=== PATIENT | male | born 1930 | race Two or more races ===

== ENCOUNTER 2016-03-01 19:21 | Inpatient (IN) | payer MEDICARE, MEDICAID ==
[~2016-03-01] VITALS: Ht 157.5 cm; Wt 80.8 kg
[2016-03-01] MEDS ORDERED: ASPIRIN 81 MG TAB.CHEW ONE (19:54)
[2016-03-01] MEDS ORDERED: ASPIRIN 81 MG TAB.CHEW PO ONE (20:00)
[2016-03-01 20:13] LABS: CREATININE 2.9 mg/dL (0.6-1.3); POTASSIUM 5.1 mmol/L (3.5-5.1)
[2016-03-01 20:21] LABS: INR 1.05 (0.87-1.13); PROTHROMBIN TIME 11.4 SECS (9.5-12.7); TROPONIN I 0.231 ng/mL (0.00-0.056)
[2016-03-01 20:23] LABS: BASOPHILS % (AUTO) 0.4 % (0.0-2.0); DIFF TOTAL % 100 %; EOSINOPHILS # (AUTO) 0.1 /CMM (0.0-0.7); EOSINOPHILS % (AUTO) 0.9 % (0.0-6.0); HEMATOCRIT 39 % (39-51); HEMOGLOBIN 12.3 g/dL (13.5-17.5); LYMPHOCYTES # (AUTO) 1.1 /CMM (0.8-4.8); LYMPHOCYTES % (AUTO) 14.7 % (20.0-44.0); MEAN CORPUSCULAR HEMOGLOBIN 29 PG (26.0-33.0); MEAN CORPUSCULAR HGB CONC 32 g/dl (31.0-36.0); MEAN CORPUSCULAR VOLUME 92 fL (80-96); MONOCYTES # (AUTO) 0.7 /CMM (0.1-1.30); MONOCYTES % (AUTO) 9.1 % (2.0-12.0); NEUTROPHILS # (AUTO) 5.4 /CMM (1.8-8.9); NEUTROPHILS % (AUTO) 74.9 % (43.0-81.0); PLATELET COUNT (AUTO) 173 /CMM (150-450); RED BLOOD CELL COUNT(AUTO) 4.21 MIL/uL (4.5-6.0); WHITE BLOOD COUNT (AUTO) 7.3 K/uL (4.3-11.0)
[2016-03-01 20:25] LABS: ALBUMIN 2.8 g/dL (3.4-5.0); BILIRUBIN,DIRECT 0.1 mg/dL (0.0-0.2); BILIRUBIN,TOTAL 0.2 mg/dL (0.2-1.0); INDIRECT BILIRUBIN 0.1 mg/dL (0.0-1.1); TOTAL PROTEIN, SERUM 6.3 g/dL (6.4-8.2)
[2016-03-01] MEDS ORDERED: IV NS 0.9% 500 ML IV ONE (20:29)
[2016-03-01] MEDS ORDERED: predniSONE 20 MG TABLET ONE (20:29)
[2016-03-01] MEDS ORDERED: LEVOFLOXACIN 750 MG /D5W 150ML 150 ML IV ONE (20:29)
[2016-03-01] MEDS ORDERED: LEVOFLOXACIN 750 MG /D5W 150ML PIGGYBACK IV ONE (20:30)
[2016-03-01] MEDS ORDERED: predniSONE 20 MG TABLET PO ONE (20:30)
[2016-03-01] MEDS ORDERED: IV SET PRIMARY PUMP SET 1 EA INFUS.SET MC ONE (20:30)
[2016-03-01] MEDS ORDERED: IV NS 0.9% 500 ML BAG IV ONE (20:30)
[2016-03-01] MEDS ORDERED: SECONDARY IV SET 1 EA INFUS.SET MC ONE (20:30)
[2016-03-01] MEDS ORDERED: FUROSEMIDE 40 MG/4 ML VIAL ONE (21:15)
[2016-03-01 21:30] VITALS: BP 124/55
[2016-03-01] MEDS ORDERED: MAGNESIUM HYDROXIDE 30 ML UDC PO PRN (21:30)
[2016-03-01] MEDS ORDERED: ZOLPIDEM TARTRATE 5 MG TABLET PO PRN (21:30)
[2016-03-01] MEDS ORDERED: MAG HYDROX/AL HYDROX/SIMETH 30 ML UDC PO PRN (21:30)
[2016-03-01] MEDS ORDERED: ALBUTEROL FS 2.5 MG/3 ML VIAL.NEB CONTNEB PRN (21:30)
[2016-03-01] MEDS ORDERED: HYDROCODONE/APAP 5/325MG 1 EACH TABLET PO PRN (21:30)
[2016-03-01] MEDS ORDERED: Z GUARD REMEDY 2 OZ OINT TP PRN (21:30)
[2016-03-01] MEDS ORDERED: ONDANSETRON HCL/PF 4 MG/2 ML VIAL IVP PRN (21:30)
[2016-03-01] MEDS ORDERED: FUROSEMIDE 40 MG/4 ML VIAL IV ONE (21:30)
[2016-03-01] MEDS ORDERED: ACETAMINOPHEN 325 MG TABLET PO PRN (21:30)
[2016-03-01 22:00] VITALS: BP 124/55
[2016-03-02 04:00] VITALS: BP 98/42
[2016-03-02] MEDS ORDERED: methylPREDNISolone SOD SUCC 125 MG/2ML VIAL ONE (04:44)
[2016-03-02] MEDS: methylPREDNISolone SOD SUCC 40 MG/ML VIAL IV SCH ×3 (05:20→21:19)
[2016-03-02 06:35] LABS: DIFF TOTAL % 100 %; HEMATOCRIT 38 % (39-51); HEMOGLOBIN 12.3 g/dL (13.5-17.5); LYMPHOCYTES # (AUTO) 0.3 /CMM (0.8-4.8); LYMPHOCYTES % (AUTO) 6.5 % (20.0-44.0); MEAN CORPUSCULAR HEMOGLOBIN 30 PG (26.0-33.0); MEAN CORPUSCULAR HGB CONC 32 g/dl (31.0-36.0); MEAN CORPUSCULAR VOLUME 92 fL (80-96); MONOCYTES % (AUTO) 0.8 % (2.0-12.0); NEUTROPHILS # (AUTO) 3.7 /CMM (1.8-8.9); NEUTROPHILS % (AUTO) 92.7 % (43.0-81.0); PLATELET COUNT (AUTO) 147 /CMM (150-450); RED BLOOD CELL COUNT(AUTO) 4.15 MIL/uL (4.5-6.0)
[2016-03-02 06:50] VITALS: BP 104/46
[2016-03-02 06:57] LABS: CALCIUM, SERUM 7.7 mg/dL (8.5-10.1); CREATININE 2.6 mg/dL (0.6-1.3); PHOSPHORUS 5.7 mg/dL (2.5-4.9); POTASSIUM 5.8 mmol/L (3.5-5.1)
[2016-03-02 08:00] VITALS: BP 144/54
[2016-03-02] MEDS: FUROSEMIDE 40 MG/4 ML VIAL IV SCH (08:18)
[2016-03-02] MEDS: PANTOPRAZOLE 40 MG TABLET.DR PO SCH (08:22)
[2016-03-02] MEDS: ASPIRIN 325 MG TABLET PO SCH (08:22)
[2016-03-02] MEDS: hydrALAZINE HCL 50 MG TABLET PO SCH ×3 (09:30→16:34)
[2016-03-02 09:47] LABS: THYROID STIMULATING HORMONE 0.239 uIU/mL (0.358-3.74)
[2016-03-02] MEDS ORDERED: SODIUM POLYSTYRENE SULFONATE 15 G/60 ML BOTTLE PO ONE (10:30)
[2016-03-02] MEDS ORDERED: TIOT18CA3 INH (10:48)
[2016-03-02] MEDS ORDERED: TAMS0.4C34 PO (10:48)
[2016-03-02] MEDS ORDERED: ESOM40CA52 PO (10:48)
[2016-03-02] MEDS ORDERED: CLOP75TA2 PO (10:48)
[2016-03-02] MEDS ORDERED: PRAM0.129 PO (10:48)
[2016-03-02] MEDS ORDERED: ATOR40TA PO (10:48)
[2016-03-02] MEDS ORDERED: ERGO50003 PO (10:48)
[2016-03-02] MEDS ORDERED: RIVA1PAT TP (10:48)
[2016-03-02] MEDS ORDERED: VALS320T13 PO (10:48)
[2016-03-02] MEDS ORDERED: DUTA0.5C15 PO (10:48)
[2016-03-02] MEDS ORDERED: ALLO100T PO (10:48)
[2016-03-02] MEDS ORDERED: BISO10TA PO (10:48)
[2016-03-02] MEDS ORDERED: TRAM50TA2 PO (10:48)
[2016-03-02] MEDS ORDERED: ASPI-991 PO (10:48)
[2016-03-02] MEDS ORDERED: TRAMADOL HCL 50 MG TABLET PO PRN (11:30)
[2016-03-02 12:00] VITALS: BP 110/49
[2016-03-02] MEDS: PRAMIPEXOLE DI-HCL 0.25 MG TABLET PO SCH (12:10)
[2016-03-02] MEDS: IPRATROPIUM NEB FS 0.5 MG/2.5 ML AMPUL.NEB NEB SCH ×2 (13:43→19:30)
[2016-03-02 15:51] LABS: ADD UA MICROSCOPIC NO; KETONES,URINE NEGATIVE (NEGATIVE); LEUKOCYTE ESTERASE ,URINE NEGATIVE (NEGATIVE)
[2016-03-02 15:56] LABS: CREATININE, URINE 46.3 MG/DL (30.0-125.0); URINE TOTAL PROTEIN 9.8 mg/dL (0-11.9)
[2016-03-02 16:00] VITALS: BP 103/52
[2016-03-02 20:00] VITALS: BP 107/68
[2016-03-03] VITALS: BP 116/72
[2016-03-03] MEDS: IPRATROPIUM NEB FS 0.5 MG/2.5 ML AMPUL.NEB NEB SCH ×3 (01:30→13:23)
[2016-03-03 04:00] VITALS: BP_SYST 109; BP_SYST 127; BP_DIAS 64; BP_DIAS 66
[2016-03-03] MEDS: methylPREDNISolone SOD SUCC 40 MG/ML VIAL IV SCH ×2 (05:36→12:16)
[2016-03-03] MEDS: PANTOPRAZOLE 40 MG TABLET.DR PO SCH (06:38)
[2016-03-03 07:07] LABS: DIFF TOTAL % 100 %; HEMATOCRIT 37 % (39-51); HEMOGLOBIN 11.7 g/dL (13.5-17.5); LYMPHOCYTES # (AUTO) 0.2 /CMM (0.8-4.8); LYMPHOCYTES % (AUTO) 4.1 % (20.0-44.0); MEAN CORPUSCULAR HEMOGLOBIN 29 PG (26.0-33.0); MEAN CORPUSCULAR HGB CONC 32 g/dl (31.0-36.0); MEAN CORPUSCULAR VOLUME 92 fL (80-96); MONOCYTES # (AUTO) 0.1 /CMM (0.1-1.30); MONOCYTES % (AUTO) 1.6 % (2.0-12.0); NEUTROPHILS # (AUTO) 5.1 /CMM (1.8-8.9); NEUTROPHILS % (AUTO) 94.3 % (43.0-81.0); PLATELET COUNT (AUTO) 151 /CMM (150-450); RED BLOOD CELL COUNT(AUTO) 3.98 MIL/uL (4.5-6.0); WHITE BLOOD COUNT (AUTO) 5.4 K/uL (4.3-11.0)
[2016-03-03 07:24] LABS: TROPONIN I 0.217 ng/mL (0.00-0.056)
[2016-03-03 07:31] LABS: ALBUMIN 2.6 g/dL (3.4-5.0); BILIRUBIN,TOTAL 0.2 mg/dL (0.2-1.0); CALCIUM, SERUM 7.8 mg/dL (8.5-10.1); CREATININE 2.5 mg/dL (0.6-1.3); PHOSPHORUS 4.3 mg/dL (2.5-4.9); POTASSIUM 4.7 mmol/L (3.5-5.1)
[2016-03-03 08:00] VITALS: BP 118/52
[2016-03-03] MEDS ORDERED: TAMSULOSIN 0.4 MG CAP.SR.24H PO SCH (09:00)
[2016-03-03] MEDS ORDERED: CLOPIDOGREL BISULFATE 75 MG TABLET PO SCH (09:00)
[2016-03-03] MEDS ORDERED: ALLOPURINOL 100 MG TABLET PO SCH (09:00)
[2016-03-03] MEDS ORDERED: TIOTROPIUM BROMIDE 6 CAP/BOX CAP.W.DEV IH SCH (09:00)
[2016-03-03] MEDS ORDERED: DUTASTERIDE (0.5 MG) 0.5 MG CAPSULE PO SCH (09:00)
[2016-03-03] MEDS ORDERED: ATORVASTATIN 40 MG TABLET PO SCH (09:00)
[2016-03-03] MEDS ORDERED: BISOPROLOL FUMARATE 5 MG TABLET PO SCH (09:00)
[2016-03-03] MEDS ORDERED: RIVASTIGMINE TARTRATE 4.6 MG PATCH.TD24 TD SCH (09:00)
[2016-03-03] MEDS: FUROSEMIDE 40 MG/4 ML VIAL IV SCH (09:11)
[2016-03-03] MEDS: ASPIRIN 325 MG TABLET PO SCH (09:11)
[2016-03-03] MEDS: hydrALAZINE HCL 50 MG TABLET PO SCH ×3 (09:11→16:39)
[2016-03-03] MEDS: PRAMIPEXOLE DI-HCL 0.25 MG TABLET PO SCH (09:12)
[2016-03-03 09:23] LABS: CREATININE, URINE 142.6 MG/DL (30.0-125.0); URINE TOTAL PROTEIN 37.8 mg/dL (0-11.9)
[2016-03-03 10:59] LABS: ADD UA MICROSCOPIC NO; KETONES,URINE NEGATIVE (NEGATIVE); LEUKOCYTE ESTERASE ,URINE NEGATIVE (NEGATIVE)
[2016-03-03] MEDS ORDERED: FUROSEMIDE 40 MG/4 ML VIAL IV ONE (14:30)
[2016-03-03 16:00] VITALS: BP 95/50
[2016-03-03] MEDS ORDERED: LEVOFLOXACIN (500MG) 500 MG TABLET PO SCH (16:30)
[2016-03-03 16:39] VITALS: BP 95/50
[2016-03-03] MEDS ORDERED: LEVOFLOXACIN (500MG) 500 MG TABLET PO ONE (17:00)
[2016-03-04 08:16] LABS: *SPE ALBUMIN 2.9 g/dL (2.9-4.4)
[2016-03-04] MEDS ORDERED: ERGOCALCIFEROL (VITAMIN D 2) 50,000 UNIT CAPSULE PO SCH (09:00)
[2016-03-04] MEDS ORDERED: FUROSEMIDE 40 MG TABLET PO SCH (09:00)
[2016-03-04 12:14] LABS: PTH, INTACT 226 pg/mL (15-65)
[2016-03-05] MEDS ORDERED: LEVOFLOXACIN (250MG) 250 MG TABLET PO SCH (17:00)
== END 2016-03-03 17:30 | disposition left against medical advice (07) | DRG 280 ==
LOC: ER 19:22 → TELE 21:14 → MED 03-03 08:53
PROVIDERS: ADMIT Internal Medicine; ATTEND Internal Medicine
DX: I13.0 Hypertensive heart and chronic kidney disease with heart failure and stage 1 through stage 4 chronic kidney disease, or unspecified chronic kidney disease (principal); I21.4 Non-ST elevation (NSTEMI) myocardial infarction; E43 Unspecified severe protein-calorie malnutrition; I50.43 Acute on chronic combined systolic (congestive) and diastolic (congestive) heart failure; N17.9 Acute kidney failure, unspecified; J44.0 Chronic obstructive pulmonary disease with (acute) lower respiratory infection; J90 Pleural effusion, not elsewhere classified; J98.11 Atelectasis; E78.5 Hyperlipidemia, unspecified; E11.22 Type 2 diabetes mellitus with diabetic chronic kidney disease; N18.9 Chronic kidney disease, unspecified; I25.10 Atherosclerotic heart disease of native coronary artery without angina pectoris; E83.39 Other disorders of phosphorus metabolism; E87.5 Hyperkalemia; J20.9 Acute bronchitis, unspecified; K21.9 Gastro-esophageal reflux disease without esophagitis; N40.0 Benign prostatic hyperplasia without lower urinary tract symptoms; Z72.0 Tobacco use; M62.50 Muscle wasting and atrophy, not elsewhere classified, unspecified site; Z68.32 Body mass index [BMI] 32.0-32.9, adult; I35.0 Nonrheumatic aortic (valve) stenosis; I27.2 Other secondary pulmonary hypertension
CPT/HCPCS: 36415; 71010-TC; 80048-TC; 80053-TC; 80061-TC; 80076-TC; 81000-TC; 82306; 82550-TC; 82570-TC; 82728-TC; 83540-TC; 83605-TC; 83735-TC; 83880; 83970; 84100-TC; 84155; 84155-TC; 84165; 84300-TC; 84439-TC; 84443-TC; 84484-TC; 85025-TC; 85730-TC; 87040-TC; 87081-TC; 93307-TC; 94799-TC; A4606; J1940; J1956; J2920; J2930; J7040; Z7610

== ENCOUNTER 2016-03-17 00:50 | Inpatient (IN) | payer MEDICARE, MEDICAID ==
[~2016-03-17] VITALS: Ht 160 cm; Wt 79.5 kg
[~2016-03-17 00:50] MED LIST: ALLO100T PO; ASPI-991 PO; ATOR40TA PO; BISO10TA PO; CLOP75TA2 PO; DUTA0.5C15 PO; ERGO50003 PO; ESOM40CA52 PO; PRAM0.129 PO; RIVA1PAT TP; TAMS0.4C34 PO; TIOT18CA3 INH; TRAM50TA2 PO; VALS320T13 PO
[2016-03-17] MEDS ORDERED: hydrALAZINE HCL 25 MG TABLET PO PRN (02:00)
[2016-03-17] MEDS ORDERED: MAG HYDROX/AL HYDROX/SIMETH 30 ML UDC PO PRN (02:00)
[2016-03-17] MEDS ORDERED: MORPHINE SULFATE INJ 2 MG/ML DISP.SYRIN IV PRN (02:00)
[2016-03-17] MEDS ORDERED: ACETAMINOPHEN 325 MG TABLET PO PRN (02:00)
[2016-03-17] MEDS ORDERED: HYDROCODONE/APAP 5/325MG 1 EACH TABLET PO PRN (02:00)
[2016-03-17] MEDS ORDERED: ZOLPIDEM TARTRATE 5 MG TABLET PO PRN (02:00)
[2016-03-17] MEDS ORDERED: ONDANSETRON HCL/PF 4 MG/2 ML VIAL IVP PRN (02:00)
[2016-03-17] MEDS ORDERED: Z GUARD REMEDY 2 OZ OINT TP PRN (02:00)
[2016-03-17] MEDS ORDERED: MAGNESIUM HYDROXIDE 30 ML UDC PO PRN (02:00)
[2016-03-17 02:10] VITALS: BP 122/59
[2016-03-17] MEDS ORDERED: ALBUTEROL FS 2.5 MG/3 ML VIAL.NEB NEB PRN (02:30)
[2016-03-17 02:51] LABS: CALCIUM, SERUM 8.1 mg/dL (8.5-10.1); CREATININE 2.7 mg/dL (0.6-1.3); POTASSIUM 4.9 mmol/L (3.5-5.1)
[2016-03-17 02:56] LABS: DIFF TOTAL % 100 %; HEMATOCRIT 38 % (39-51); HEMOGLOBIN 12.4 g/dL (13.5-17.5); LYMPHOCYTES # (AUTO) 0.2 /CMM (0.8-4.8); LYMPHOCYTES % (AUTO) 2.9 % (20.0-44.0); MEAN CORPUSCULAR HEMOGLOBIN 30 PG (26.0-33.0); MEAN CORPUSCULAR HGB CONC 32 g/dl (31.0-36.0); MEAN CORPUSCULAR VOLUME 92 fL (80-96); MONOCYTES % (AUTO) 0.5 % (2.0-12.0); NEUTROPHILS # (AUTO) 6.6 /CMM (1.8-8.9); NEUTROPHILS % (AUTO) 96.6 % (43.0-81.0); PLATELET COUNT (AUTO) 153 /CMM (150-450); RED BLOOD CELL COUNT(AUTO) 4.19 MIL/uL (4.5-6.0); WHITE BLOOD COUNT (AUTO) 6.8 K/uL (4.3-11.0)
[2016-03-17 04:00] VITALS: BP 103/71
[2016-03-17 04:43] LABS: INR 1.16 (0.87-1.13); PROTHROMBIN TIME 12.6 SECS (9.5-12.7)
[2016-03-17 08:00] VITALS: BP 112/76
[2016-03-17] MEDS: ASPIRIN 81 MG TAB.CHEW PO SCH (09:57)
[2016-03-17] MEDS: PANTOPRAZOLE 40 MG TABLET.DR PO SCH (09:58)
[2016-03-17 12:00] VITALS: BP 126/64
[2016-03-17] MEDS: FUROSEMIDE 100 MG/10 ML VIAL IV SCH ×3 (13:22→20:30)
[2016-03-17 16:00] VITALS: BP 150/66
[2016-03-17] MEDS ORDERED: ASPIRIN EC 81 MG TABLET.DR PO SCH (16:00)
[2016-03-17] MEDS ORDERED: TIOTROPIUM BROMIDE 6 CAP/BOX CAP.W.DEV IH SCH (16:00)
[2016-03-17] MEDS ORDERED: TRAMADOL HCL 50 MG TABLET PO PRN (16:00)
[2016-03-17] MEDS ORDERED: Medication Not On Formulary EA (Esomeprazole Magnesium 40 MG) PO SCH (16:00)
[2016-03-17] MEDS: BISOPROLOL FUMARATE 5 MG TABLET PO SCH (17:00)
[2016-03-17] MEDS: TAMSULOSIN 0.4 MG CAP.SR.24H PO SCH (17:18)
[2016-03-17] MEDS: PRAMIPEXOLE DI-HCL 0.25 MG TABLET PO SCH (17:19)
[2016-03-17 20:00] VITALS: BP 111/56
[2016-03-18] VITALS (8 sets, daily range): BP systolic 96–130; BP diastolic 49–68
[2016-03-18] MEDS ORDERED: PANTOPRAZOLE 40 MG TABLET.DR PO SCH (07:30)
[2016-03-18] MEDS: IPRATROPIUM NEB FS 0.5 MG/2.5 ML AMPUL.NEB NEB SCH ×3 (07:35→20:00)
[2016-03-18] MEDS: ALBUTEROL HALF STRENGTH 1.25 MG/3 ML VIAL.NEB NEB SCH ×3 (07:35→20:00)
[2016-03-18] MEDS: RIVASTIGMINE TARTRATE 4.6 MG PATCH.TD24 TD SCH (08:14)
[2016-03-18] MEDS: ALLOPURINOL 100 MG TABLET PO SCH (08:15)
[2016-03-18] MEDS: BISOPROLOL FUMARATE 5 MG TABLET PO SCH (08:15)
[2016-03-18] MEDS: DUTASTERIDE (0.5 MG) 0.5 MG CAPSULE PO SCH (08:15)
[2016-03-18] MEDS: CLOPIDOGREL BISULFATE 75 MG TABLET PO SCH (08:16)
[2016-03-18] MEDS: PANTOPRAZOLE 40 MG TABLET.DR PO SCH (08:16)
[2016-03-18] MEDS: TAMSULOSIN 0.4 MG CAP.SR.24H PO SCH (08:16)
[2016-03-18] MEDS: PRAMIPEXOLE DI-HCL 0.25 MG TABLET PO SCH (08:16)
[2016-03-18] MEDS: VALSARTAN 80 MG TABLET PO SCH (08:16)
[2016-03-18] MEDS: ASPIRIN 81 MG TAB.CHEW PO SCH (08:16)
[2016-03-18] MEDS: ATORVASTATIN 40 MG TABLET PO SCH (08:16)
[2016-03-18] MEDS: FUROSEMIDE 80 MG TABLET PO SCH (08:17)
[2016-03-18 08:19] LABS: BASOPHILS % (AUTO) 0.1 % (0.0-2.0); DIFF TOTAL % 100 %; HEMATOCRIT 38 % (39-51); HEMOGLOBIN 12.1 g/dL (13.5-17.5); LYMPHOCYTES # (AUTO) 0.7 /CMM (0.8-4.8); LYMPHOCYTES % (AUTO) 8.3 % (20.0-44.0); MEAN CORPUSCULAR HEMOGLOBIN 29 PG (26.0-33.0); MEAN CORPUSCULAR HGB CONC 32 g/dl (31.0-36.0); MEAN CORPUSCULAR VOLUME 93 fL (80-96); MONOCYTES # (AUTO) 0.5 /CMM (0.1-1.30); MONOCYTES % (AUTO) 5.4 % (2.0-12.0); NEUTROPHILS # (AUTO) 7.4 /CMM (1.8-8.9); NEUTROPHILS % (AUTO) 86.2 % (43.0-81.0); PLATELET COUNT (AUTO) 164 /CMM (150-450); RED BLOOD CELL COUNT(AUTO) 4.14 MIL/uL (4.5-6.0); WHITE BLOOD COUNT (AUTO) 8.6 K/uL (4.3-11.0)
[2016-03-18 08:34] LABS: CALCIUM, SERUM 8.3 mg/dL (8.5-10.1); CREATININE 2.5 mg/dL (0.6-1.3); PHOSPHORUS 4.3 mg/dL (2.5-4.9); POTASSIUM 4.9 mmol/L (3.5-5.1)
[2016-03-18] MEDS ORDERED: ERGOCALCIFEROL (VITAMIN D 2) 50,000 UNIT CAPSULE PO SCH (09:00)
[2016-03-18 13:07] LABS: GLUCOSE,BODY FLUID 139 mg/dL; LDH, BODY FLUID 74 U/L
[2016-03-18 13:19] LABS: PROTEIN, BODY FLUID < 2.0 G/DL
[2016-03-18 14:32] LABS: APPEARANCE,UNSPUN,BODY FLUID SLIGHTLY HAZY (CLEAR)
[2016-03-18 14:33] LABS: COLOR,BODY FLUID YELLOW (LT YELLOW); RBC, BODY FLUID 29 /cu. mm. (0-2000); WBC, BODY FLUID 14 /cu. mm. (0-200)
[2016-03-18 14:34] LABS: MACROPHAGES, BODY FLUID 2; POLYNUCLEAR, BODY FLUID 12 % (0-25)
[2016-03-19] MEDS: IPRATROPIUM NEB FS 0.5 MG/2.5 ML AMPUL.NEB NEB SCH ×4 (01:25→20:13)
[2016-03-19] MEDS: ALBUTEROL HALF STRENGTH 1.25 MG/3 ML VIAL.NEB NEB SCH ×4 (01:25→20:13)
[2016-03-19 07:25] LABS: BASOPHILS % (AUTO) 0.2 % (0.0-2.0); DIFF TOTAL % 100 %; EOSINOPHILS % (AUTO) 0.7 % (0.0-6.0); HEMATOCRIT 37 % (39-51); HEMOGLOBIN 11.9 g/dL (13.5-17.5); LYMPHOCYTES # (AUTO) 0.7 /CMM (0.8-4.8); LYMPHOCYTES % (AUTO) 12.4 % (20.0-44.0); MEAN CORPUSCULAR HEMOGLOBIN 30 PG (26.0-33.0); MEAN CORPUSCULAR HGB CONC 32 g/dl (31.0-36.0); MEAN CORPUSCULAR VOLUME 92 fL (80-96); MONOCYTES # (AUTO) 0.3 /CMM (0.1-1.30); MONOCYTES % (AUTO) 5.8 % (2.0-12.0); NEUTROPHILS # (AUTO) 4.7 /CMM (1.8-8.9); NEUTROPHILS % (AUTO) 80.9 % (43.0-81.0); PLATELET COUNT (AUTO) 145 /CMM (150-450); RED BLOOD CELL COUNT(AUTO) 4.02 MIL/uL (4.5-6.0); WHITE BLOOD COUNT (AUTO) 5.9 K/uL (4.3-11.0)
[2016-03-19 07:40] LABS: ALBUMIN 2.5 g/dL (3.4-5.0); BILIRUBIN,TOTAL 0.4 mg/dL (0.2-1.0); CALCIUM, SERUM 7.9 mg/dL (8.5-10.1); CREATININE 2.3 mg/dL (0.6-1.3); PHOSPHORUS 3.8 mg/dL (2.5-4.9); POTASSIUM 4.6 mmol/L (3.5-5.1); TOTAL PROTEIN, SERUM 5.5 g/dL (6.4-8.2)
[2016-03-19 07:47] LABS: TROPONIN I 0.322 ng/mL (0.00-0.056)
[2016-03-19 08:00] VITALS: BP 121/57
[2016-03-19] MEDS: RIVASTIGMINE TARTRATE 4.6 MG PATCH.TD24 TD SCH (08:33)
[2016-03-19] MEDS: BISOPROLOL FUMARATE 5 MG TABLET PO SCH (08:34)
[2016-03-19] MEDS: CLOPIDOGREL BISULFATE 75 MG TABLET PO SCH (08:35)
[2016-03-19] MEDS: VALSARTAN 80 MG TABLET PO SCH (08:35)
[2016-03-19] MEDS: FUROSEMIDE 80 MG TABLET PO SCH ×2 (08:36→16:20)
[2016-03-19] MEDS: PRAMIPEXOLE DI-HCL 0.25 MG TABLET PO SCH (08:36)
[2016-03-19] MEDS: DUTASTERIDE (0.5 MG) 0.5 MG CAPSULE PO SCH (08:36)
[2016-03-19] MEDS: TAMSULOSIN 0.4 MG CAP.SR.24H PO SCH (08:36)
[2016-03-19] MEDS: ATORVASTATIN 40 MG TABLET PO SCH (08:36)
[2016-03-19] MEDS: ASPIRIN 81 MG TAB.CHEW PO SCH (08:36)
[2016-03-19] MEDS: PANTOPRAZOLE 40 MG TABLET.DR PO SCH (08:36)
[2016-03-19] MEDS: ALLOPURINOL 100 MG TABLET PO SCH (08:36)
[2016-03-19] MEDS ORDERED: FUROSEMIDE 40 MG/4 ML VIAL IV SCH (12:30)
[2016-03-19] MEDS ORDERED: CEFTRIAXONE 1 G in IV D5W 50 ML IV SCH (13:00)
[2016-03-19] MEDS ORDERED: AZITHROMYCIN 500 MG in IV D5W 250 ML IV SCH (13:00)
[2016-03-19] MEDS ORDERED: IV SET PRIMARY PUMP SET 1 EA INFUS.SET MC ONE (13:31)
[2016-03-19] MEDS ORDERED: SECONDARY IV SET 1 EA INFUS.SET MC ONE (13:31)
[2016-03-19] MEDS ORDERED: IV NS 0.9% 250 ML IV ONE (13:31)
[2016-03-19 16:00] VITALS: BP 123/54
[2016-03-19] MEDS ORDERED: AMOX/CLAVULANATE 875 MG TABLET PO SCH (17:00)
[2016-03-19 20:00] VITALS: BP 127/67
[2016-03-19] MEDS: AMOX/CLAVULANATE 250 MG TABLET PO SCH (21:08)
[2016-03-20] MEDS: IPRATROPIUM NEB FS 0.5 MG/2.5 ML AMPUL.NEB NEB SCH ×2 (02:18→07:37)
[2016-03-20] MEDS: ALBUTEROL HALF STRENGTH 1.25 MG/3 ML VIAL.NEB NEB SCH ×2 (02:18→07:37)
[2016-03-20 08:00] VITALS: BP 123/61
[2016-03-20] MEDS: ATORVASTATIN 40 MG TABLET PO SCH (08:42)
[2016-03-20] MEDS: ASPIRIN 81 MG TAB.CHEW PO SCH (08:42)
[2016-03-20] MEDS: FUROSEMIDE 80 MG TABLET PO SCH (08:42)
[2016-03-20] MEDS: TAMSULOSIN 0.4 MG CAP.SR.24H PO SCH (08:43)
[2016-03-20] MEDS: DUTASTERIDE (0.5 MG) 0.5 MG CAPSULE PO SCH (08:43)
[2016-03-20] MEDS: PRAMIPEXOLE DI-HCL 0.25 MG TABLET PO SCH (08:43)
[2016-03-20] MEDS: PANTOPRAZOLE 40 MG TABLET.DR PO SCH (08:43)
[2016-03-20] MEDS: BISOPROLOL FUMARATE 5 MG TABLET PO SCH (08:44)
[2016-03-20] MEDS: RIVASTIGMINE TARTRATE 4.6 MG PATCH.TD24 TD SCH (08:44)
[2016-03-20] MEDS: AMOX/CLAVULANATE 250 MG TABLET PO SCH (08:44)
[2016-03-20 08:53] VITALS: BP 123/61
[2016-03-20] MEDS: VALSARTAN 80 MG TABLET PO SCH (08:53)
[2016-03-20] MEDS: CLOPIDOGREL BISULFATE 75 MG TABLET PO SCH (08:54)
[2016-03-20 10:02] LABS: BASOPHILS % (AUTO) 0.3 % (0.0-2.0); DIFF TOTAL % 100 %; EOSINOPHILS # (AUTO) 0.1 /CMM (0.0-0.7); HEMATOCRIT 40 % (39-51); HEMOGLOBIN 12.7 g/dL (13.5-17.5); LYMPHOCYTES # (AUTO) 0.5 /CMM (0.8-4.8); LYMPHOCYTES % (AUTO) 8.5 % (20.0-44.0); MEAN CORPUSCULAR HEMOGLOBIN 29 PG (26.0-33.0); MEAN CORPUSCULAR HGB CONC 32 g/dl (31.0-36.0); MEAN CORPUSCULAR VOLUME 90 fL (80-96); MONOCYTES # (AUTO) 0.3 /CMM (0.1-1.30); MONOCYTES % (AUTO) 5.8 % (2.0-12.0); NEUTROPHILS # (AUTO) 4.8 /CMM (1.8-8.9); NEUTROPHILS % (AUTO) 83.4 % (43.0-81.0); PLATELET COUNT (AUTO) 166 /CMM (150-450); RED BLOOD CELL COUNT(AUTO) 4.39 MIL/uL (4.5-6.0); WHITE BLOOD COUNT (AUTO) 5.7 K/uL (4.3-11.0)
[2016-03-20 10:16] LABS: CALCIUM, SERUM 8.3 mg/dL (8.5-10.1); CREATININE 2.3 mg/dL (0.6-1.3); POTASSIUM 3.8 mmol/L (3.5-5.1)
[2016-03-20] MEDS ORDERED: FUROSEMIDE 80 MG TABLET PO SCH (17:00)
== END 2016-03-20 12:05 | disposition home or self-care (01) | DRG 280 ==
LOC: TELE 01:47 → MED 03-18 10:05
PROVIDERS: ADMIT Internal Medicine; ATTEND Internal Medicine
PROC: 0W993ZZ Drainage of Right Pleural Cavity, Percutaneous Approach (ICD-10-PCS; principal; 2016-03-18)
DX: I21.4 Non-ST elevation (NSTEMI) myocardial infarction (principal); N17.0 Acute kidney failure with tubular necrosis; J96.21 Acute and chronic respiratory failure with hypoxia; I50.33 Acute on chronic diastolic (congestive) heart failure; J15.9 Unspecified bacterial pneumonia; I13.0 Hypertensive heart and chronic kidney disease with heart failure and stage 1 through stage 4 chronic kidney disease, or unspecified chronic kidney disease; J44.1 Chronic obstructive pulmonary disease with (acute) exacerbation; J98.11 Atelectasis; J90 Pleural effusion, not elsewhere classified; E87.0 Hyperosmolality and hypernatremia; N18.9 Chronic kidney disease, unspecified; I25.10 Atherosclerotic heart disease of native coronary artery without angina pectoris; F03.90 Unspecified dementia, unspecified severity, without behavioral disturbance, psychotic disturbance, mood disturbance, and anxiety; E78.5 Hyperlipidemia, unspecified; D63.8 Anemia in other chronic diseases classified elsewhere; G47.33 Obstructive sleep apnea (adult) (pediatric); F09 Unspecified mental disorder due to known physiological condition
CPT/HCPCS: 36415; 71010-TC; 76942-TC; 80048-TC; 80053-TC; 83735-TC; 84100-TC; 84484-TC; 85025-TC; 85610-TC; 87070-TC; 87075-TC; 87081-TC; 87102-TC; 89051-TC; 94799-TC; 97001-TC; 97003-TC; 97110-TC; 97116-TC; 97530-TC; 97535-TC; J0456; J0696; J1940; J7050; J7060; Z7610

== ENCOUNTER 2017-01-12 21:19 | Emergency (ER) | payer MEDICARE, MEDICAID ==
[~2017-01-12] VITALS: Ht 167.6 cm; Wt 69.9 kg
[~2017-01-12 21:19] MED LIST changes: -ALLO100T PO
[2017-01-12] MEDS ORDERED: IPRATROPIUM NEB FS 0.5 MG/2.5 ML AMPUL.NEB ONE (22:19)
[2017-01-12] MEDS ORDERED: ALBUTEROL FS 2.5 MG/3 ML VIAL.NEB ONE (22:19)
[2017-01-12] MEDS ORDERED: ALBUTEROL FS 2.5 MG/3 ML VIAL.NEB NEB ONE (22:30)
[2017-01-12] MEDS ORDERED: DEXAMETHASONE SOD PHOSPHATE 10 MG/ML VIAL IV ONE (22:30)
[2017-01-12] MEDS ORDERED: IPRATROPIUM NEB FS 0.5 MG/2.5 ML AMPUL.NEB NEB ONE (22:30)
--- NOTE | 2017-01-12 22:34 | NUR ---
FAXED REQUEST FOR RELEASE OF MEDICAL RECORDS TO ROSAURA, NURSING CABLE MAINTAINER AT [facility]. FAX# [phone].
--- NOTE | 2017-01-12 23:56 | NUR ---
Patient asleep in bed w/ resp even & unlabored, easily arousable, denies any sob w/ nad noted. Family at bedside. Patient discharged to home in stable condition. Written and verbal after care instructions given. Patient family verbalizes understanding of instruction.
[2017-01-12 23:58] VITALS: BP 119/67
== END 2017-01-13 | disposition home or self-care (01) ==
LOC: ER 21:21
DX: B02.9 Zoster without complications (principal); J44.1 Chronic obstructive pulmonary disease with (acute) exacerbation; I10 Essential (primary) hypertension; E11.9 Type 2 diabetes mellitus without complications; F17.200 Nicotine dependence, unspecified, uncomplicated; Z79.82 Long term (current) use of aspirin
CPT/HCPCS: 93005; 94640; 99283; A4606; Z7610